=== PATIENT | female | born 1975 | race Caucasian/White ===

== ENCOUNTER → 2019-02-21 | Outpatient (CLI) | payer BC ==
[~2019-02-21] MED LIST: ANAPROX DS550 MG PO; AUGMENTIN 875 M1 TAB PO; CLARITIN10 MG; FLOMAX0.4 MG PO; HYTRIN1 M1 PO; MOTRIN800 MG PO; NAPROSYN500 MG PO; OMNARIS50 MCG/Act; PERCOCET 325 MG1 TA2 PO; SILVADENE,SSD C50 GM PO; SILVADENE,SSD C50 GM TP; SINGULAIR10 MG; ZOFRAN ODT4 MG PO
== END | disposition home or self-care (01) ==
LOC: CT 02-11 14:00
DX: R09.81 Nasal congestion (principal); G44.029 Chronic cluster headache, not intractable; J32.8 Other chronic sinusitis

== ENCOUNTER → 2020-01-06 | Outpatient (CLI) | payer BC | END | disposition home or self-care (01) | LOC: COVID19 08:42 | PROVIDERS: ATTEND Nurse Practitioner Family | DX: Z20.828 Contact with and (suspected) exposure to other viral communicable diseases (principal) ==

== ENCOUNTER → 2020-02-16 | Outpatient (CLI) | payer BC | END | disposition home or self-care (01) | LOC: CT 15:06 | PROVIDERS: ATTEND Family Medicine | DX: N13.30 Unspecified hydronephrosis (principal); N20.1 Calculus of ureter; N20.0 Calculus of kidney; R31.9 Hematuria, unspecified; K57.30 Diverticulosis of large intestine without perforation or abscess without bleeding ==

== ENCOUNTER → 2020-03-01 | Outpatient (CLI) | payer BC | END | disposition home or self-care (01) | LOC: US 10:43 | PROVIDERS: ATTEND Urology | DX: N20.0 Calculus of kidney (principal) ==

== ENCOUNTER → 2020-03-04 | Outpatient (CLI) | payer BC ==
[2020-03-13 16:10] LABS: BUSHITE 2.34 ratio (0.00-3.00); CALCIUM OXALATE 4.27 ratio (0.00-6.00); CALCIUM, URINE 256.2 mg/24 hr (100.0-300.0); CALCIUM, URINE 9.4 mg/dL (Not Estab.); CITRIC ACID (CITRATE) 788 mg/24 hr (320-1240); CREATININE, URINE 1348.9 mg/24 hr (800.0-1800.0); CREATININE, URINE 49.5 mg/dL (Not Estab.); MAGNESIUM, URINE 3.3 mg/dL (Not Estab.); MONOSODIUM URATE 3.59 ratio (0.00-4.00); OSMOLALITY, URINE 350 (300-900); SODIUM, URINE 270 (39-258); SODIUM, URINE 99 mmol/L (Not Estab.); STRUVITE 0.08 ratio (0.00-1.00); URIC ACID 0.23 ratio (0.00-1.20); pH 24 HR URINE 6.8 (.)
== END | disposition home or self-care (01) ==
LOC: LAB 12:00
PROVIDERS: ATTEND Urology
DX: N20.0 Calculus of kidney (principal); R31.9 Hematuria, unspecified

== ENCOUNTER → 2020-03-05 | Outpatient (CLI) | payer BC ==
[2020-03-05 12:00] LABS: BILIRUBIN Negative (Negative); BLOOD Trace-Intact (Negative); CLARITY Clear (Clear); COLOR Yellow (Yellow); GLUCOSE Negative (Negative); KETONE Negative (Negative); LEUKO ESTERASE Negative (Negative); NITRITE Negative (Negative); PH 6.5 (4.5-8.0); UROBILINOGEN 0.2 E.U./dl (0.0-1.0)
[2020-03-05 13:11] LABS: BACTERIA 1+
== END | disposition home or self-care (01) ==
LOC: LAB 11:32
PROVIDERS: ATTEND Urology
DX: N20.0 Calculus of kidney (principal); R31.9 Hematuria, unspecified

== ENCOUNTER → 2020-05-24 | Outpatient (CLI) | payer BC | END | disposition home or self-care (01) | LOC: US 11:17 | PROVIDERS: ATTEND Urology | DX: N13.30 Unspecified hydronephrosis (principal); N20.0 Calculus of kidney; Z96.0 Presence of urogenital implants ==

== ENCOUNTER → 2020-08-14 | Outpatient (CLI) | payer BC | END | disposition home or self-care (01) | LOC: CT 14:00 | PROVIDERS: ATTEND Urology | DX: N20.0 Calculus of kidney (principal); N13.30 Unspecified hydronephrosis ==

== ENCOUNTER → 2020-10-25 | Outpatient (CLI) | payer BC | END | disposition home or self-care (01) | LOC: CT 08:55 | PROVIDERS: ATTEND Family Medicine | DX: K57.30 Diverticulosis of large intestine without perforation or abscess without bleeding (principal); N13.30 Unspecified hydronephrosis; N13.4 Hydroureter; N13.5 Crossing vessel and stricture of ureter without hydronephrosis; N20.2 Calculus of kidney with calculus of ureter; Z96.0 Presence of urogenital implants ==